=== PATIENT | male | born 1940 | race Caucasian/White ===

== ENCOUNTER → 2019-08-16 | Day surgery (SDC) | payer MEDICARE, OTHER ==
[~2019-08-16] MED LIST: ALBU2.5V5 NEB; ASPI81TA50 PO; ATOR40TA59 PO; CARV3.1210 PO; CETI10TA16 PO; CLOP75TA PO; EZET10TA20 PO; FURO20TA3 PO; INSU100I13 SQ; INSU100V6 SQ; IV RINGERS,LACTATED 1000ML 1,000 ML IV SCH; LIDOCAINE 2% PF 5 ML VIAL. ONE; METF500T16 PO; PROPOFOL 20 ML IV ONE; SPIR25TA5 PO; [UNRECOGNIZED DRUG - CODE] PO
[2019-08-16 10:05] VITALS: BP 111/65
== END ==
LOC: ENDOS 08:29
PROVIDERS: ATTEND Internal Medicine Gastroenterology
DX: R11.2 Nausea with vomiting, unspecified (principal); K29.50 Unspecified chronic gastritis without bleeding; E78.00 Pure hypercholesterolemia, unspecified; I25.2 Old myocardial infarction; E11.22 Type 2 diabetes mellitus with diabetic chronic kidney disease; I13.0 Hypertensive heart and chronic kidney disease with heart failure and stage 1 through stage 4 chronic kidney disease, or unspecified chronic kidney disease; N18.3 Chronic kidney disease, stage 3 (moderate); I50.9 Heart failure, unspecified; Z79.82 Long term (current) use of aspirin; Z95.5 Presence of coronary angioplasty implant and graft; Z95.0 Presence of cardiac pacemaker; Z87.891 Personal history of nicotine dependence; Z87.39 Personal history of other diseases of the musculoskeletal system and connective tissue; Z85.46 Personal history of malignant neoplasm of prostate; Z79.84 Long term (current) use of oral hypoglycemic drugs; Z98.42 Cataract extraction status, left eye; Z98.41 Cataract extraction status, right eye; Z96.1 Presence of intraocular lens
CPT/HCPCS: 43235; J2001; J2704; J3490